=== PATIENT | female | born 1980 | race Caucasian/White ===

== ENCOUNTER → 2019-09-21 | Outpatient (CLI) | payer BC | END | disposition home or self-care (01) | LOC: CFH 08:41 | PROVIDERS: ATTEND Surgery | DX: Z80.3 Family history of malignant neoplasm of breast (principal) | CPT/HCPCS: 77066; G0279 ==

== ENCOUNTER 2019-09-22 12:55 | Outpatient (CLI) | payer BC ==
[2019-11-02] MEDS ORDERED: CHOL10003 PO (13:36)
[2019-11-02] MEDS ORDERED: ASCO-96 PO (13:36)
[2019-11-02] MEDS ORDERED: Magnesium PO (13:36)
[2019-11-02] MEDS ORDERED: turmeric PO (13:36)
[2019-11-02] MEDS ORDERED: LEVO100T5 PO (13:36)
[2019-11-02] MEDS ORDERED: cannabis PO (13:36)
[2019-11-02] MEDS ORDERED: VENL150C PO (13:36)
[2019-11-02] MEDS ORDERED: vitamin k PO (13:36)
== END 2019-09-22 23:59 | disposition home or self-care (01) ==
LOC: CFH 12:55
PROVIDERS: ATTEND Surgery
DX: N63.42 Unspecified lump in left breast, subareolar (principal); Z80.3 Family history of malignant neoplasm of breast
CPT/HCPCS: 76642

== ENCOUNTER → 2019-10-20 | Outpatient (CLI) | payer BC | END | disposition home or self-care (01) | LOC: CFH 12:15 | PROVIDERS: ATTEND Pain Medicine Interventional Pain Medicine | DX: M50.121 Cervical disc disorder at C4-C5 level with radiculopathy (principal); M54.6 Pain in thoracic spine | CPT/HCPCS: 72040; 72072 ==

== ENCOUNTER 2019-11-04 08:59 | Day surgery (SDC) | payer BC ==
[~2019-11-04] VITALS: Ht 165.1 cm; Wt 88.4 kg
[~2019-11-04 08:59] MED LIST: ASCO-96 PO; CHOL10003 PO; LEVO100T5 PO; Magnesium PO; VENL150C PO; cannabis PO; turmeric PO; vitamin k PO
[2019-11-04] MEDS ORDERED: ONDANSETRON 2MG/ML, 2ML ONE (10:21)
[2019-11-04] MEDS ORDERED: FENTANYL PF 100 MCG/2ML ONE ×2 (10:21→12:41)
[2019-11-04] MEDS ORDERED: DEXAMETHASONE 4 MG/ML, 1ML ONE (10:21)
[2019-11-04] MEDS ORDERED: MIDAZOLAM 1 MG/ML, 2ML ONE ×2 (10:21→11:05)
[2019-11-04] MEDS ORDERED: LIDOCAINE-MPF 2% ,5ML ONE ×2 (10:21→10:53)
[2019-11-04] MEDS ORDERED: ROCURONIUM 10MG/ML,5ML ONE (10:21)
[2019-11-04] MEDS ORDERED: PROPOFOL 10 MG/ML, 20ML ONE (10:21)
[2019-11-04] MEDS ORDERED: GLYCOPYRROLATE 0.2MG/1ML, 5ML ONE (10:21)
[2019-11-04] MEDS ORDERED: CHLORHEXIDINE 15 ML UDC MM STA (10:50)
[2019-11-04] MEDS ORDERED: LIDOCAINE-MPF 1%, 2ML INFIL STA (10:50)
[2019-11-04 10:52] VITALS: BP 132/92
[2019-11-04] MEDS ORDERED: LACTATED RINGERS 1,000 ML IV ONE (10:53)
[2019-11-04] MEDS ORDERED: BUPIVACAINE/PF-EPI 0.5% 1:200K ONE (10:53)
[2019-11-04] MEDS ORDERED: LIDOCAINE-MPF 1%, 2ML ONE (11:00)
[2019-11-04] MEDS ORDERED: SCOPOLAMINE 1MG PATCH TD ONE ×2 (11:01→11:07)
[2019-11-04] MEDS ORDERED: LABETALOL 5MG/ML, 20ML ONE (11:34)
[2019-11-04] MEDS ORDERED: OXYcodone 5 MG/5 ML ORAL.SOL UDC PO PRN ×2 (12:30→13:00)
[2019-11-04] MEDS ORDERED: ONDANSETRON 2MG/ML, 2ML IVPush PRN ×2 (12:30→13:00)
[2019-11-04] MEDS ORDERED: HYDROmorphone 2 MG/ML, 1ML IVPush PRN (12:30)
[2019-11-04] MEDS ORDERED: DIPHENHYDRAMINE 50 MG/ML, 1ML IVPush PRN ×2 (12:30→13:00)
[2019-11-04] MEDS ORDERED: ACETAMINOPHEN 650 MG/20.3 ML UDC ONE (12:41)
[2019-11-04] MEDS ORDERED: OXYcodone 5 MG/5 ML ORAL.SOL UDC ONE (12:41)
[2019-11-04] MEDS ORDERED: METOCLOPRAMIDE 5 MG/ML, 2ML IVPush PRN (13:00)
[2019-11-04] MEDS ORDERED: FENTANYL PF 100 MCG/2ML IV PRN (13:00)
[2019-11-04] MEDS ORDERED: LORazepam 2 MG/ML, 1ML IVPush PRN (13:00)
[2019-11-04] MEDS ORDERED: DIAZEPAM 5 MG/ML, 2ML IVPush PRN (13:00)
[2019-11-04] MEDS ORDERED: HALOPERIDOL 5 MG/ML IV PRN (13:00)
[2019-11-04] MEDS ORDERED: LABETALOL 5MG/ML, 20ML IV PRN (13:00)
[2019-11-04] MEDS ORDERED: ALBUTEROL/IPRATROPIUM 2.5MG/0.5MG, 3 ML NPPB PRN (13:00)
[2019-11-04] MEDS ORDERED: morphine SULFATE 10 MG/ML, 1ML IVPush PRN (13:00)
[2019-11-04] MEDS ORDERED: ACETAMINOPHEN 325 MG TABLET PO PRN (13:00)
[2019-11-04] MEDS ORDERED: EPHEDRINE 50 MG/ML, 1ML IVPush PRN (13:00)
[2019-11-04] MEDS ORDERED: HYDROmorphone 1 MG/ML, 1ML INJ IVPush PRN (13:00)
[2019-11-04] MEDS ORDERED: KETOROLAC 30 MG/1 ML IVPush PRN (13:00)
[2019-11-04] MEDS ORDERED: METHOCARBAMOL 1,000 MG in DEXTROSE 5% 100 ML IV PRN (13:00)
[2019-11-04] MEDS ORDERED: EPHEDRINE 50 MG/ML, 1ML IM PRN (13:00)
[2019-11-04] MEDS ORDERED: MIDAZOLAM 1 MG/ML, 2ML IV PRN (13:00)
[2019-11-04] MEDS ORDERED: MEPERIDINE/PF 25MG/0.5ML IVPush PRN (13:00)
== END 2019-11-04 14:43 | disposition home or self-care (01) ==
LOC: OR 08:59 → OUT 14:43
PROVIDERS: ATTEND Surgery
DX: N63.21 Unspecified lump in the left breast, upper outer quadrant (principal); Z20.828 Contact with and (suspected) exposure to other viral communicable diseases; D24.2 Benign neoplasm of left breast; M19.90 Unspecified osteoarthritis, unspecified site; F17.210 Nicotine dependence, cigarettes, uncomplicated; F12.90 Cannabis use, unspecified, uncomplicated; Z88.5 Allergy status to narcotic agent; Z85.850 Personal history of malignant neoplasm of thyroid; Z79.899 Other long term (current) drug therapy; Z85.43 Personal history of malignant neoplasm of ovary; Z98.890 Other specified postprocedural states; Z83.3 Family history of diabetes mellitus
CPT/HCPCS: 19125; 19126; 19285; 19286; 36415; 76098; 77065; 81025; 87635; 88307; J1100; J2250; J2405; J2704; J3010; J3490; J7120